=== PATIENT | male | born 1990 | race Asian ===

== ENCOUNTER 2019-03-29 11:29 | Emergency (ER) | payer MEDICAID ==
[~2019-03-29] VITALS: Ht 175.3 cm; Wt 73.0 kg
[2019-03-29] MEDS ORDERED: KETOROLAC 60MG/2ML VIAL IM ONE (12:30)
[2019-03-29 14:55] VITALS: BP 115/80
== END 2019-03-29 15:06 | disposition home or self-care (01) ==
LOC: ER 11:29
DX: S92.345A Nondisplaced fracture of fourth metatarsal bone, left foot, initial encounter for closed fracture (principal); X58.XXXA Exposure to other specified factors, initial encounter; Y93.89 Activity, other specified; Y92.89 Other specified places as the place of occurrence of the external cause; Y99.8 Other external cause status
CPT/HCPCS: 29515; 73630; 96372; 99283; J1885

== ENCOUNTER 2019-12-23 21:51 | Emergency (ER) | payer MEDICAID ==
[~2019-12-23] VITALS: Ht 165.1 cm; Wt 66.0 kg
[2019-12-23 23:53] VITALS: BP 132/79
== END 2019-12-23 23:54 | disposition home or self-care (01) ==
LOC: ER 21:51
DX: L03.111 Cellulitis of right axilla (principal)
CPT/HCPCS: 99281; 99283

== ENCOUNTER 2020-04-30 12:22 | Emergency (ER) | payer MEDICAID ==
[~2020-04-30] VITALS: Ht 175.3 cm; Wt 68.0 kg
[2020-04-30 12:34] VITALS: BP 145/93
== END 2020-04-30 13:55 | disposition home or self-care (01) ==
LOC: ER 12:22
DX: L73.2 Hidradenitis suppurativa (principal); L03.112 Cellulitis of left axilla
CPT/HCPCS: 99284

== ENCOUNTER 2023-01-30 16:15 | Emergency (ER) | payer MEDICAID ==
[~2023-01-30] VITALS: Ht 175.3 cm; Wt 69.0 kg
[2023-01-30] MEDS ORDERED: DEXAMETHASONE 10 MG/ML VIAL IM ONE (17:30)
[2023-01-30] MEDS ORDERED: HYDROCODONE/ACETAMINOPHEN 5/325MG TABLET PO ONE (17:30)
[2023-01-30] MEDS ORDERED: KETOROLAC 60MG/2ML VIAL IM ONE (17:30)
[2023-01-30] MEDS ORDERED: HYDROCODONE/ACETAMINOPHEN 5/325MG TABLET PO NR (21:00)
[2023-01-30] MEDS ORDERED: KETOROLAC 30MG/ML VIAL IM NR (21:00)
[2023-01-30] MEDS ORDERED: DEXAMETHASONE 10 MG/ML VIAL IM NR (21:00)
[2023-01-30] MEDS ORDERED: CYCL10TA21 MT (21:03)
[2023-01-30] MEDS ORDERED: HYDR-4001 MT (21:03)
[2023-01-30] MEDS ORDERED: IBUP-2028 MT (21:03)
[2023-01-30 21:14] VITALS: BP 172/101
== END 2023-01-30 21:20 | disposition home or self-care (01) ==
LOC: ER 16:15
DX: M54.16 Radiculopathy, lumbar region (principal); R20.0 Anesthesia of skin
CPT/HCPCS: 96372; 99284; J1100; J1885

== ENCOUNTER 2023-04-13 19:34 | Emergency (ER) | payer MEDICAID ==
[~2023-04-13] VITALS: Ht 175.3 cm; Wt 52.0 kg
[~2023-04-13 19:34] MED LIST: CYCL10TA21 MT; HYDR-4001 MT; IBUP-2028 MT
[2023-04-13 20:03] VITALS: BP 146/85; O2SAT 98
[2023-04-13] MEDS ORDERED: PREDNISONE 20MG TABLET PO ONE (22:00)
[2023-04-13] MEDS ORDERED: DIPHENHYDRAMINE 50MG CAPSULE PO ONE (22:00)
[2023-04-13] MEDS ORDERED: DIPHENHYDRAMINE 25MG CAPSULE PO NR (22:00)
[2023-04-13] MEDS ORDERED: P50 MT (22:25)
[2023-04-13] MEDS ORDERED: B50 MT (22:25)
[2023-04-13 22:45] VITALS: PULSE 75; RESP 18; TEMP 99.1
== END 2023-04-13 22:45 | disposition home or self-care (01) ==
LOC: ER 19:34
DX: T78.40XA Allergy, unspecified, initial encounter (principal); Z98.890 Other specified postprocedural states; X58.XXXA Exposure to other specified factors, initial encounter
CPT/HCPCS: 99283; Q0163; J7512

== ENCOUNTER 2023-05-04 19:35 | Emergency (ER) | payer MEDICAID ==
[~2023-05-04] VITALS: Ht 175.3 cm; Wt 67.0 kg
[~2023-05-04 19:35] MED LIST changes: +B50 MT; +P50 MT
[2023-05-04 19:42] VITALS: BP 141/88; O2SAT 99
[2023-05-04] MEDS ORDERED: PREDNISONE 20MG TABLET PO ONE (20:45)
[2023-05-04] MEDS ORDERED: FAMOTIDINE 20MG TABLET PO SCH (20:45)
[2023-05-04] MEDS ORDERED: CETIRIZINE 10MG TABLET PO SCH (20:45)
[2023-05-04] MEDS ORDERED: P20 MT (21:34)
[2023-05-04] MEDS ORDERED: CETI-338 PO (21:34)
[2023-05-04] MEDS ORDERED: EPIN0.3P3 IM (21:34)
[2023-05-04 21:50] VITALS: PULSE 84; RESP 18; TEMP 98.3
== END 2023-05-04 21:50 | disposition home or self-care (01) ==
LOC: ER 19:35
DX: T78.40XA Allergy, unspecified, initial encounter (principal); X58.XXXA Exposure to other specified factors, initial encounter
CPT/HCPCS: 99284; J7512

== ENCOUNTER 2023-09-11 04:19 | Emergency (ER) | payer MEDICAID, OTHER ==
[~2023-09-11] VITALS: Ht 175.3 cm; Wt 68.0 kg
[~2023-09-11 04:19] MED LIST changes: +CETI-338 PO; +EPIN0.3P3 IM; +P20 MT
[2023-09-11 04:36] VITALS: O2SAT 98
[2023-09-11] MEDS ORDERED: ACETAMINOPHEN 325MG TABLET PO NR (06:30)
[2023-09-11 09:27] VITALS: BP 131/79; PULSE 83; RESP 20; TEMP 98.3
== END 2023-09-11 09:29 | disposition home or self-care (01) ==
LOC: ER 04:19
DX: M25.572 Pain in left ankle and joints of left foot (principal); Z98.890 Other specified postprocedural states; Z90.89 Acquired absence of other organs
CPT/HCPCS: 73610; 73630; 99284